=== PATIENT | male | born 1975 | race Caucasian/White ===

== ENCOUNTER → 2020-04-04 15:08 | Outpatient (BNVA) | payer BC, SELFPAY | PROVIDERS: Family Provider Family Medicine; Visit Provider Nurse Practitioner Family | DX: E01.0 Iodine-deficiency related diffuse (endemic) goiter (principal); R59.1 Generalized enlarged lymph nodes; R63.5 Abnormal weight gain; R51 Headache; Z86.19 Personal history of other infectious and parasitic diseases; J32.9 Chronic sinusitis, unspecified; R53.83 Other fatigue | CPT/HCPCS: 80053; 84443; 85025 ==

== ENCOUNTER 2020-04-11 14:01 | Outpatient (CLI) | payer BC, SELFPAY ==
--- NOTE | 2020-04-11 14:30 | CT_ITS ---
WS: [id number] CT scan of the neck. Additional two-dimensional coronal and sagittal reconstruction was performed. Clinical Data: . Swelling and pain adjacent to the thyroid on the right side of the neck. Comparison: CT neck, 08/30/2017. DLP: 1518.[address] scans at [facility] use at least one of these dose optimization techniques: automat ed exposure control; mA and/or kV adjustment per patient size (includes targeted exams where dose is matched to clinical indication); or iterative reconstruction. Findings: Stable lymphadenopathy but the nodes are slightly smaller and less numerous. The left supraclavicular area does not show the large conglomeration of nodes noted on the previous scan. The salivary glands are unremarkable. There is no prevertebral soft tissue swelling. The larynx is symmetric. The thyroi d gland shows no abnormalities. The floor of the mouth and parapharyngeal spaces are normal. The oral cavity is unremarkable. The adenoid tissue anterior to the skull base and C1 remains unchanged. The cervical spine is unremarkable. The lung apices show no abnormalities. No erosion of the skull o r skull base is seen. CT/CT neck wo con [id number] Impression: 1. Stable lymphadenopathy with slight decrease in number and size of nodes. 2. No abnormalities of the right side of the neck at the level of the thyroid g land.
== END 2020-04-11 14:02 | disposition home or self-care (01) ==
LOC: RADWPI 14:05
PROVIDERS: Visit Provider Nurse Practitioner Family
DX: R22.1 Localized swelling, mass and lump, neck (principal); M54.2 Cervicalgia
CPT/HCPCS: 70490

== ENCOUNTER → 2021-09-15 08:14 | Outpatient (BNVA) | payer BC, SELFPAY | PROVIDERS: Visit Provider Nurse Practitioner | DX: Z20.822 Contact with and (suspected) exposure to COVID-19 (principal); Z20.828 Contact with and (suspected) exposure to other viral communicable diseases | CPT/HCPCS: 87635; 87801 ==

== ENCOUNTER → 2022-12-03 13:48 | Outpatient (BNVA) | payer OTHER, SELFPAY | PROVIDERS: Visit Provider Family Medicine | DX: R03.0 Elevated blood-pressure reading, without diagnosis of hypertension (principal) | CPT/HCPCS: 80053; 80061; 85025 ==